=== PATIENT | female | born 1930 | race Caucasian/White ===

== ENCOUNTER 2016-05-28 14:24 | Emergency (ER) | payer MEDICARE ==
[2016-05-28 14:36] VITALS: RESP 18; TEMP 97.8
[2016-05-28 14:56] VITALS: BP 114/78; PULSE 65; O2SAT 95
[2016-05-28] MEDS ORDERED: ONDANSETRON HCL 4 MG/2 ML SOL IV ONE (14:59)
[2016-05-28] MEDS ORDERED: ONDANSETRON HCL 4 MG/2 ML SOL ONE (15:02)
== END 2016-05-28 15:41 | disposition home or self-care (01) | DRG 392 ==
LOC: ED 14:24
DX: K52.9 Noninfective gastroenteritis and colitis, unspecified (principal)
CPT/HCPCS: 99283; J2405